=== PATIENT | male | born 1980 | race African-American/Black ===

== ENCOUNTER 2022-05-18 15:43 | Emergency (ER) | payer MEDICAID ==
[~2022-05-18] VITALS: Ht 167.6 cm; Wt 71.0 kg
[2022-05-18 15:54] VITALS: BP 121/85
[2022-05-18] MEDS ORDERED: LIDOCAINE HCL/PF 1% 10 MG/ML 5ML VIAL INFIL ONE (17:15)
[2022-05-18] MEDS ORDERED: CEPH500C2 MT (17:51)
[2022-05-19] MEDS ORDERED: CEPH500T MT (14:23)
== END 2022-05-18 17:56 | disposition home or self-care (01) ==
LOC: ER 15:43
DX: L03.012 Cellulitis of left finger (principal); F12.10 Cannabis abuse, uncomplicated
CPT/HCPCS: 10060; 99282; J3490; Z7610

== ENCOUNTER 2022-05-19 12:02 | Emergency (ER) | payer MEDICAID ==
[~2022-05-19] VITALS: Ht 167.6 cm; Wt 75.0 kg
[~2022-05-19 12:02] MED LIST: CEPH500C2 MT
[2022-05-19 12:14] VITALS: BP 129/91
[2022-05-19] MEDS ORDERED: CEPH500T MT (14:23)
== END 2022-05-19 16:41 | disposition home or self-care (01) ==
LOC: ER 13:11
DX: L03.011 Cellulitis of right finger (principal); R03.0 Elevated blood-pressure reading, without diagnosis of hypertension; F12.10 Cannabis abuse, uncomplicated; Z71.51 Drug abuse counseling and surveillance of drug abuser
CPT/HCPCS: 99283